=== PATIENT | male | born 1970 ===

== ENCOUNTER 2020-06-20 14:27 | Inpatient (IN) ==
[2020-06-20 15:57] LABS: Hematocrit 49 % (42-52); Hemoglobin 16.6 g/dL (14.0-18.0); Mean Corpuscular HGB Conc 34 g/dL (31-36); Mean Corpuscular Hemoglobin 29 pg (27-31); Mean Corpuscular Volume 87 fL (80-94); Red Blood Count 5.65 10^6 /uL (4.18-5.48); Red Cell Distribution Width 15 % (10-15)
[2020-06-20 16:10] LABS: ALT 161 U/L (7-52); AST 65 U/L (13-39); Albumin 3.2 g/dL (3.2-5.2); Albumin/Globulin Ratio 1.7 (1-3); Alkaline Phosphatase 65 U/L (34-104); Anion Gap 7 mmol/L (2-11); BUN/Creatinine Ratio 15.6 (8-20); Blood Urea Nitrogen 23 mg/dL (6-24); C Reactive Protein 8.27 mg/L (<8.01); CO2 Carbon Dioxide 22 mmol/L (22-32); Calcium 8.5 mg/dL (8.6-10.3); Chloride 106 mmol/L (101-111); EGFR African American 61.9 (>60); EGFR Non-African American 51.1 (>60); Globulin 1.9 g/dL (2-4); Glucose 103 mg/dL (70-100); Lipase 29 U/L (11.0-82.0); Sodium 135 mmol/L (135-145); Total Protein 5.1 g/dL (6.4-8.9)
[2020-06-20 16:26] LABS: ABS Basophils 0.1 10^3/ul (0-0.2); ABS Eosinophils 0.2 10^3/ul (0-0.6); ABS Lymphocytes 2.4 10^3/ul (1.0-4.8); ABS Monocytes 1.3 10^3/ul (0-0.8); Eosinophil % 1.6 %; Platelet Count Platelets clumped. 10^3/uL (150-450)
[2020-06-20 16:47] LABS: Troponin I 0.04 ng/mL (<0.03)
[2020-06-20 17:00] LABS: Urine Appearance Clear; Urine Bilirubin Negative (Negative); Urine Blood Negative (Negative); Urine Color Yellow; Urine Glucose Negative (Negative); Urine Ketones Negative (Negative); Urine Nitrite Negative (Negative); Urine Protein Negative (Negative); Urine Specific Gravity 1.011 (1.010-1.030); Urine Urobilinogen Negative (Negative)
[2020-06-20] MEDS ORDERED: Ondansetron 4 mg VIAL 2 MG/ML 2 ml VIAL IV PRN (18:44)
[2020-06-20] MEDS ORDERED: hydrALAZINE 20 mg/ml 1 ML Vial IV IV SLOW PU PRN (18:52)
[2020-06-20] MEDS ORDERED: Furosemide 20 mg/2 ml IV VIAL IV ONE ×2 (19:26→19:29)
[2020-06-20 19:39] LABS: Hepatitis B Surface Antigen Nonreactive (Nonreactive)
[2020-06-20 19:45] LABS: Hepatitis A Ab IgM Negative (Negative); Hepatitis B Core IgM Nonreactive (Nonreactive)
[2020-06-20 19:54] LABS: Platelet Count 184 10^3/uL (150-450)
[2020-06-20 19:57] LABS: Hepatitis C Antibody Negative (Negative)
[2020-06-20 20:04] LABS: INR 1.07 (0.82-1.09)
[2020-06-20 20:14] LABS: Troponin I 0.07 ng/mL (<0.03)
[2020-06-20] MEDS: Enoxaparin 40 MG/0.4 ML SYR SUBCUT SCH (21:11)
[2020-06-20] MEDS ORDERED: Iodixanol (CONTRAST) 320 MG/ML 100 ML SDV IV ONE (22:11)
[2020-06-20 23:45] LABS: Troponin I 0.07 ng/mL (<0.03)
[2020-06-21 05:40] LABS: ABS Basophils 0.1 10^3/ul (0-0.2); ABS Eosinophils 0.1 10^3/ul (0-0.6); ABS Lymphocytes 2.1 10^3/ul (1.0-4.8); ABS Monocytes 1.1 10^3/ul (0-0.8); ABS Neutrophils 6.4 10^3/ul (1.5-7.7); Eosinophil % 1.1 %; Hematocrit 49 % (42-52); Hemoglobin 16.3 g/dL (14.0-18.0); Lymphocyte % 21.5 %; Mean Corpuscular HGB Conc 34 g/dL (31-36); Mean Corpuscular Hemoglobin 29 pg (27-31); Mean Corpuscular Volume 87 fL (80-94); Mean Platelet Volume 9.1 fL (7.4-10.4); Nucleated Red Blood Cells % 0.1; Platelet Count 182 10^3/uL (150-450); Red Blood Count 5.58 10^6 /uL (4.18-5.48); Red Cell Distribution Width 15 % (10-15); White Blood Count 9.7 10^3/uL (3.5-10.8)
[2020-06-21 06:12] LABS: Troponin I 0.06 ng/mL (<0.03)
[2020-06-21 06:51] LABS: Anion Gap 9 mmol/L (2-11); CO2 Carbon Dioxide 25 mmol/L (22-32); Calcium 8.2 mg/dL (8.6-10.3); Chloride 106 mmol/L (101-111); Indirect Bilirubin 1.3 mg/dL (0.3-1.0); Potassium 3.4 mmol/L (3.5-5.0); Sodium 140 mmol/L (135-145)
[2020-06-21 06:57] LABS: ALT 144 U/L (7-52); AST 52 U/L (13-39); Albumin/Globulin Ratio 1.5 (1-3); Alkaline Phosphatase 60 U/L (34-104); BUN/Creatinine Ratio 13.2 (8-20); Blood Urea Nitrogen 19 mg/dL (6-24); EGFR African American 63.4 (>60); EGFR Non-African American 52.4 (>60); Glucose 91 mg/dL (70-100)
[2020-06-21] MEDS ORDERED: Potassium Chlor 20 meq TAB.ER PO ONE (08:29)
[2020-06-21] MEDS ORDERED: Furosemide 40 mg/4 ml IV VIAL IV SLOW PU ONE (09:14)
[2020-06-21] MEDS ORDERED: Polyethylene Glycol 3350 17 GM PACKET PO PRN (09:14)
[2020-06-21] MEDS ORDERED: CMC:Lactase Enzyme (NF) 3,000 UNIT TAB PO PRN (13:21)
[2020-06-21] MEDS: Al Hydrox/Mg Hydrox/Simet LIQ 30 ML UDC PO PRN ×2 (19:57→23:57)
[2020-06-21] MEDS: Enoxaparin 40 MG/0.4 ML SYR SUBCUT SCH (19:58)
[2020-06-22 07:53] LABS: TSH Ultra Thyroid Stim Horm 4.14 mcIU/mL (0.34-5.60)
[2020-06-22 07:59] LABS: Ferritin 20.4 ng/mL (24-336)
[2020-06-22] MEDS: Al Hydrox/Mg Hydrox/Simet LIQ 30 ML UDC PO PRN ×2 (08:24→17:21)
[2020-06-22 10:00] LABS: % Iron Saturation 38 % (15-55); ALT 141 U/L (7-52); AST 53 U/L (13-39); Albumin/Globulin Ratio 1.8 (1-3); Alkaline Phosphatase 60 U/L (34-104); Anion Gap 11 mmol/L (2-11); BUN/Creatinine Ratio 13.2 (8-20); Blood Urea Nitrogen 20 mg/dL (6-24); CO2 Carbon Dioxide 21 mmol/L (22-32); Calcium 8.6 mg/dL (8.6-10.3); Chloride 106 mmol/L (101-111); EGFR Non-African American 49.6 (>60); Globulin 1.7 g/dL (2-4); Glucose 94 mg/dL (70-100); Iron 108 ug/dL (50-212); Potassium 4.1 mmol/L (3.5-5.0); Sodium 138 mmol/L (135-145); Total Iron Binding Capacity 288 mcg/dL (250-450); Total Protein 4.7 g/dL (6.4-8.9); Transferrin 206 mg/dL (203-362); Unsaturated Iron Binding < 273 ug/dL
[2020-06-22] MEDS: Enoxaparin 40 MG/0.4 ML SYR SUBCUT SCH (19:56)
[2020-06-22] MEDS ORDERED: NS 0.9% 1000 ml BAG 1,000 ML IV SCH (23:55)
[2020-06-23] MEDS: Al Hydrox/Mg Hydrox/Simet LIQ 30 ML UDC PO PRN ×2 (01:15→15:11)
[2020-06-23 05:51] LABS: BUN/Creatinine Ratio 12.6 (8-20); Calcium 8.1 mg/dL (8.6-10.3); EGFR African American 50.9 (>60); EGFR Non-African American 42.1 (>60); Potassium 3.6 mmol/L (3.5-5.0)
[2020-06-23] MEDS ORDERED: diPHENhydraMINE 25 mg TAB PO PRN (08:00)
[2020-06-23] MEDS ORDERED: VERAPAMIL 2.5 MG/ML 2 ML VIAL ** 5 mg/2 ml ONE (08:30)
[2020-06-23] MEDS ORDERED: Heparin 1,000 UNIT/ML 10 ml (10,000 UNITS) CATHLAB/DIALYSIS ONE (08:30)
[2020-06-23] MEDS ORDERED: fentaNYL 100 mcg/2 ml 50 MCG/ML VIAL ONE (08:30)
[2020-06-23] MEDS ORDERED: Midazolam 5 mg/5 ml VIAL 1 mg/ml 5 ml VIAL (5 mg) ONE (08:30)
[2020-06-23] MEDS ORDERED: Heparin 2 UNITS/ML 1000 mls 2,000 ML IV ONE (08:31)
[2020-06-23] MEDS ORDERED: nitroGLYCERIN DRIP 25,000 MCG/250 ML BTL ONE (08:31)
[2020-06-23] MEDS ORDERED: Lidocaine 1% VIAL 10 MG/ML VIAL ONE (08:31)
[2020-06-23] MEDS ORDERED: diPHENhydraMINE 25 mg TAB ONE (08:34)
[2020-06-23] MEDS ORDERED: Iodixanol 320 (CONTRAST) 100 ML SDV ONE (08:39)
[2020-06-23 14:12] LABS: Albumin 2.8 g/dL (3.2-5.2); Albumin/Globulin Ratio 1.5 (1-3); Globulin 1.9 g/dL (2-4); Indirect Bilirubin 1.2 mg/dL (0.3-1.0); Total Bilirubin 1.4 mg/dL (0.2-1.0); Total Protein 4.7 g/dL (6.4-8.9)
[2020-06-23 14:34] VITALS: BP 107/82
[2020-06-24 15:57] LABS: Ceruloplasmin 23.7 mg/dL
[2020-06-25 12:09] LABS: Tissue Transglutaminase IgA Ab <1.2 U/mL
[2020-06-25 18:43] LABS: Alpha 1 Antitrypsin A1A 140 mg/dL (100 - 190)
[2020-06-25 21:58] LABS: Immunoglobulin A 127 mg/dL (61 - 356)
== END 2020-06-23 15:26 | disposition home or self-care (01) | DRG 192 ==
LOC: MEDTELE 14:27 → ED 14:27 → MEDTELE 19:48
PROVIDERS: ADMIT Student in an Organized Health Care Education/Training Program; ATTEND Internal Medicine